=== PATIENT | female | born 1970 | race Caucasian/White ===

== ENCOUNTER 2022-08-01 10:08 | Day surgery (SDC) | payer OTHER ==
[~2022-08-01] VITALS: Ht 157.5 cm; Wt 61.2 kg
[2022-08-01] MEDS ORDERED: fentaNYL citrate 0.05 MG/ML VIAL ONE (11:02)
[2022-08-01] MEDS ORDERED: MIDAZOLAM 5 MG/5 ML VIAL ONE (11:02)
[2022-08-01] MEDS ORDERED: diphenhydrAMINE 50 MG/ML VIAL ONE (11:02)
[2022-08-01] MEDS ORDERED: diphenhydrAMINE 50 MG/ML VIAL IVP ONE (12:35)
[2022-08-01] MEDS ORDERED: MIDAZOLAM 2 MG/2 ML VIAL IVP ONE (12:35)
[2022-08-01] MEDS ORDERED: fentaNYL citrate 0.05 MG/ML VIAL IVP ONE (12:35)
== END 2022-08-01 12:10 | disposition home or self-care (01) ==
LOC: MOR 10:08 → MMU 10:16 → MOR 12:10
PROVIDERS: ATTEND Internal Medicine Gastroenterology
DX: K30 Functional dyspepsia (principal); K31.89 Other diseases of stomach and duodenum; K59.00 Constipation, unspecified; M19.90 Unspecified osteoarthritis, unspecified site; Z80.52 Family history of malignant neoplasm of bladder; Z98.890 Other specified postprocedural states
CPT/HCPCS: 43239; 88305; 88312; 88313; 88342; J1200; J2250; J3010